=== PATIENT | female | born 1950 | race African-American/Black ===

== ENCOUNTER → 2020-12-13 | Outpatient (CLI) | payer OTHER ==
[~2020-12-13] VITALS: Ht 165.1 cm; Wt 77.1 kg
[~2020-12-13] MED LIST: BACLOFEN 10MG T10 MG PO; BAYER CHEWABLE81 MG PO; CENTRUM SILVER1 EAC6 PO; EVISTA60 MG PO; GLIPIZIDE 10 MG10 MG PO; GLUCOPHAGE1000 MG PO; HYDROCHLOROTHIA25 M1 PO; HYDROCODON-ACE1 EAC7 PO; LISINOPRIL10 MG PO; MOVANTIK25 MG PO; NEURONTIN 300M300 M2 PO; OMEPRAZOLE40 MG PO; TUMS DUAL ACTI1 EACH PO; VITAMIN D3 COM1 EACH PO
[2020-12-13 08:17] VITALS: BP 157/82
--- NOTE | 2020-12-13 08:34 | NUR ---
Pain Clinic Assessment: 1. History of Osteoarthritis: BACK History of Rheumatoid Arthritis: 2. Height: 5 ft. 5 in. 165.1 cm. Weight: 170.0 lb. oz. 77.112 kg. Patient's BMI: 28.3 3. Vital Signs: BP: 157/82 Pulse: 82 Resp: 16 Temp: 02 Sat: 100 ECG Mon: 4. Pain Intensity: 9-10 5. Fall Risk: Dizziness: N Needs help standing or walking: N Fallen in the last 3 months: N Fall risk comments: 6. Patient on Blood Thinner: None 7. History of Hypertension: Y 8. Opioid Therapy greater than 6 weeks: N Opiate Contract Signed: 9. Risk Assessment Tool Provided: 0-LOW RISK 10. Functional Assessment Tool: 66/70 11. Recreational Drug Use: Never Drug Type: Tobacco Use: Never Smoker Tobacco Type: Amount or Packs/day: How Many Years: Alcohol Use: No Frequency: Quant:
--- NOTE | 2020-12-14 09:22 | HPC ---
[facility] [address] [place] [address] PAIN MANAGEMENT CONSULTATION Name: JAVI LOGAN Room #: REG OSCAR Nikolai#: [id number] Admission: 12/13/20 Attend Phys: Oswald Kaur DO Discharge: Date of : 54 Report #: [id number] THIS REPORT FOR: cc: MAXINE DE LA VEGA MD, RADHIKA MD Johnson, James E. DO ~ DATE OF SERVICE: 12/13/2020 CHIEF COMPLAINT: Low back pain, right lower extremity pain with paresthesias and mid back pain. HISTORY OF PRESENT ILLNESS: As you know, the patient is a very pleasant 70-year-old female reporting longstanding history of mid back pain due to myofascial symptoms and low back pain and right lower extremity pain that presented on 06/04/2020. She denies any specific injury or trauma. The patient reports that she was in her normal state of health when the symptoms began to occur. She denies injury or trauma that led to symptom development. She has sought conservative treatment options to address ongoing symptoms including medication management, for which she is receiving gabapentin through her primary care physician and has had some hydrocodone to treat current symptoms. She has been sent to see Dr. Aguiar in regards to a possible EMG, which apparently was performed yesterday. The patient does not have the results of that EMG to date. She has been referred to our service to discuss interventional treatment options to address low back pain and right lower extremity pain. She states she has been involved in physical therapy. She has undergone 8 sessions of physical therapy, but did not feel this is provided much in the way of improvement. She has not returned to physical therapy. She has been advised that her mid back symptoms appear to be myofascial in origin and has been taking hydrocodone for this issue. She has been referred to our service to discuss interventional treatment options. The patient reports today her pain is continuous. She describes the pain as burning, shooting, sharp, tender, and pulling with intermittent numbness and tingling. She places current pain score 10+/10. Daily average of 9/10. The worst the pain has been is 10+/10. The patient states that sitting, walking, and lying down tends to exacerbate symptoms. Nothing tends to improve her symptoms. She has been referred to our service to discuss interventional treatment options to address suspected lumbar radiculopathy. PAST MEDICAL HISTORY: 1. Gastroesophageal reflux disease. 2. Diabetes mellitus type 2. 3. Hypertension. 4. Chronic low back pain. 5. Osteoarthritis. 6. Opioid-induced constipation. [address] [address] PAIN MANAGEMENT CONSULTATION Name: JAVI LOGAN Room #: REG [place]#: [id number] Admission: 12/13/20 Attend Phys: Oswald Kaur DO Discharge: Date of : 54 Report #: [id number] PAST SURGICAL HISTORY: 1. Back surgery to address lumbar radiculopathy 1988, 02/1990, and 12/2010. 2. Bilateral total knee arthroplasties. SOCIAL HISTORY: The patient denies tobacco use. Denies IV or illicit drug use. Denies any chronic alcohol use. 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 She is working from home due to COVID restrictions. She is not receiving workmen's compensation, nor is she trying to obtain disability benefits. She is not in litigation in regards to pain. She is unaccompanied at today's visit. REVIEW OF SYSTEMS: Positive for weight change, decrease in appetite, wearing corrective eyewear, depression, non-insulin dependent diabetes, midback pain, low back pain, gastroesophageal reflux disease, and osteoarthritis. All other review of systems negative per 12-point review of systems other than those listed in history of present illness. Pain impact score 66 to 70 indicating severe near complete interference of daily activities secondary to pain. ALLERGIES: KETOROLAC AND DULOXETINE. CURRENT MEDICATIONS: Multivitamin 1 tab per day, famotidine 1 tab per day, Evista 60 mg once a day, lisinopril 10 mg per day, omeprazole 40 mg per day, aspirin 81 mg per day, hydrochlorothiazide 25 mg once a day, multivitamin 1 tab per day, Movantik 25 mg once a day, glipizide 10 mg once a day, metformin 1000 mg twice a day, gabapentin 300 mg 3 times a day, hydrocodone 5/325 one tab every 4-6 hours p.r.n. for pain. IMAGING: MRI of the lumbar spine obtained 09/21/2020 shows L2-L3 with marked degenerative changes, diffuse disk bulge, facet arthropathy, and ligamentum flavum hypertrophy resulting in mild trefoil central canal stenosis with moderate bilateral neural foraminal narrowing. Thecal sac measures 8 mm. L3-L4 shows degenerative changes to the disk, asymmetric lateral disk bulge, facet arthropathy, ligamentum flavum hypertrophy resulting in moderate bilateral neural foraminal narrowing with thecal sac measuring 1.1 cm. At L4-L5, marked degenerative changes, diffuse disk bulge, facet arthropathy, marked left and moderate right neural foraminal narrowing. At L5-S1, moderate degenerative changes, diffuse disk bulge, superimposed left paracentral subarticular disk protrusion resulting in moderate central canal stenosis with effacement of bilateral lateral recesses, marked bilateral neural foraminal narrowing. Thecal sac measures 7 mm. EMG of the lower extremities performed by Dr. Aguiar on 12/12/2020 shows [facility] [address] [place] [address] PAIN MANAGEMENT CONSULTATION Name: JAVI LOGAN Room #: REG [facility]#: [id number] Admission: 12/13/20 Attend Phys: Oswald Kaur DO Discharge: Date of : 54 Report #: [id number] initial results as negative for any pathology. PQRS: The patient has known arthritic changes of the bilateral shoulders, lumbar spine, and bilateral hips. No rheumatoid arthritis. She is placing pain intensity anywhere from 9-10/10, not a fall risk, has not had a fall in last 3 months. She is not on blood thinners, but is treated for hypertension. She has had some opioid medication, but is not on opioid long-term. She has a low risk of opioid addiction based on our assessment tool. Pain impact is 66/70, severe near complete interference of daily activities secondary to pain. PHYSICAL EXAMINATION: VITAL SIGNS: Blood pressure 157/82, pulse 82, respiratory rate 16 and unlabored. The patient is 100% on room air. Height 5 feet 5 inches tall, weight 170 pounds, BMI calculated 28.3. GENERAL: Well-developed, well-nourished, well-hydrated 70-year-old male appearing her stated age, placing current pain score of 9-10/10. HEENT: Normocephalic, atraumatic. Pupils equal, round and reactive. The patient is wearing a mask in compliance with COVID-19 regulations. LUNGS: Appear clear. No wheeze, rhonchi, or rales. CARDIOVASCULAR: Regular. No appreciable gallop, no rub. ABDOMEN: Soft, obese, normoactive bowel sounds. EXTREMITIES: Show no clubbing, no cyanosis. No appreciable edema. MUSCULOSKELETAL: Lower extremity strength appears symmetrical 5/5. Slight giveaway strength noted on the right when compared to left due to pain generation. Seated straight leg raising negative. Supine straight leg raising mildly positive right at approximately 60-degree angle. Ankle clonus negative. Babinski is negative. The patient has palpatory tenderness noted throughout the thoracolumbar area. No spinous process tenderness. Deep inhalation and exhalation causes no change in thoracic pain. There is no radiation of symptoms in a dermatomal distribution. ASSESSMENT: 1. Lumbar radiculopathy. 2. Displacement of lumbar intervertebral disk with radiculopathy. 3. 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 4. Central canal stenosis of lumbar spine. 5. Myofascial pain in thoracic spine. PLAN: 1. Based on today's physical exam and history the patient has provided, the description the patient uses in regards to pain as well as location of symptoms, it would appear she is suffering from 2 different pain generators. The first and most consistent is the lumbar radicular symptoms secondary to the findings on the MRI. I am pleased to indicate that the patient has undergone an EMG, which has initial diagnosis of no significant nerve-related long-term issues. This would indicate that a treatment in the area that could provide improvement [address] [address] PAIN MANAGEMENT CONSULTATION Name: JAVI LOGAN Xavier Room #: REG [place]#: [id number] Admission: 12/13/20 Attend Phys: Oswald Kaur DO Discharge: Date of : 54 Report #: [id number] in symptoms. We discussed with the patient the treatment options based on the findings in her physical exam and MRI imaging obtained and presented to us today. The following was discussed with the patient as treatment option. We discussed physical therapy, stretching exercises, and core strengthening as treatment approach. We discussed medication management, adding neuropathic pain medication such as increasing her current gabapentin or rotating to another agent. We discussed epidural injections under fluoroscopic guidance, for which the patient was referred to our clinic and ultimately surgical options. After reviewing risks and benefits of all proposed treatment options, the patient chose to move forward with a lumbar epidural injection under fluoroscopic guidance. The patient was advised that due to third democr[employer] payer restrictions, authorization would have to be obtained before the patient could undergo an epidural injection. We will begin this process immediately. Once we have attained this authorization, we will have the patient return to undergo the first in the series of lumbar epidural injections. 2. In regards to the patient's mid back pain, it does appear she is suffering from myofascial symptoms as the palpatory distribution is diffuse and is nondermatomal in distribution. There is no spinous process tenderness. Thus, I do not feel that there is any underlying concerning findings in the thoracic spine. We recommend conservative treatment approach with physical therapy, stretching exercises, directed acupuncture, and myofascial release techniques to the area and possible addition of a muscle relaxant. The patient chose to begin with a muscle relaxant. The patient was provided prescription of baclofen 10 mg dose 1 tab p.o. t.i.d. I have advised the patient watch for any side effects with its use. If no side effects, she can continue to use as directed. I have given her #60 tablets. We will discuss efficacy at the followup visit. 3. We will plan to see the patient back in followup visit once authorization has been obtained to undergo the first in the series of lumbar epidural injections. We are hopeful we will have this approval quickly and be able to address her symptoms. 4. We wish to thank Dr. De La Vega for the referral of this patient to our clinic. We will keep you apprised of response to treatment, as we address lumbar radiculopathy and myofascial pain. Again, we wish to thank you for the opportunity to see this patient in consultation. <ELECTRONICALLY SIGNED> By: Oswald Kaur DO 12/14/20 0922 [id number] Oswald Kaur DO /nt
== END ==
LOC: PAIN 06:49
PROVIDERS: ATTEND Anesthesiology Pain Medicine
DX: M51.16 Intervertebral disc disorders with radiculopathy, lumbar region (principal); M48.061 Spinal stenosis, lumbar region without neurogenic claudication; M79.604 Pain in right leg; R20.2 Paresthesia of skin; M79.10 Myalgia, unspecified site; Z88.8 Allergy status to other drugs, medicaments and biological substances; Z79.899 Other long term (current) drug therapy

== ENCOUNTER → 2020-12-20 | Outpatient (CLI) | payer OTHER ==
[~2020-12-20] VITALS: Ht 165.1 cm; Wt 78.7 kg
[2020-12-20 09:18] VITALS: BP 170/98
--- NOTE | 2020-12-20 09:21 | NUR ---
Pain Clinic Assessment: 1. History of Osteoarthritis: BACK History of Rheumatoid Arthritis: 2. Height: 5 ft. 5 in. 165.1 cm. Weight: 173.4 lb. oz. 78.654 kg. Patient's BMI: 28.9 3. Vital Signs: BP: 170/98 Pulse: 82 Resp: 16 Temp: 02 Sat: 100 ECG Mon: 4. Pain Intensity: 7 5. Fall Risk: Dizziness: N Needs help standing or walking: N Fallen in the last 3 months: N Fall risk comments: 6. Patient on Blood Thinner: None 7. History of Hypertension: Y 8. Opioid Therapy greater than 6 weeks: N Opiate Contract Signed: 9. Risk Assessment Tool Provided: 0-LOW RISK 10. Functional Assessment Tool: 66/70 11. Recreational Drug Use: Never Drug Type: Tobacco Use: Never Smoker Tobacco Type: Amount or Packs/day: How Many Years: Alcohol Use: No Frequency: Quant:
--- NOTE | 2020-12-21 11:25 | HPC ---
[facility] [place] [address] PAIN MANAGEMENT CONSULTATION Name: JAVI LOGAN Room #: REG OSCAR Liz.#: [id number] Admission: 12/20/20 Attend Phys: Oswald Kaur DO Discharge: Date of : 54 Report #: [id number] THIS REPORT FOR: cc: MAXINE DE LA VEGA MD, RADHIKA MD Johnson, James E. DO ~ DATE OF SERVICE: 12/20/2020 CHIEF COMPLAINT: Low back pain, right lower extremity pain with paresthesias, intermittent mid back pain. HISTORY OF PRESENT ILLNESS: As you know, the patient is a very pleasant 70-year-old female reporting longstanding history of low back pain, right lower extremity pain with paresthesias and intermittent mid back pain. The patient indicates pain began somewhere in 06/04/2020. She denies any specific injury or trauma. She had tried various treatment options ultimately seeking further discussion with her PCP as [id number] medications, rest, relaxation did not improve symptoms. She underwent evaluation even undergoing EMG, which likely showed no significant results. She was referred to our clinic to trial epidural injection under fluoroscopic guidance. The patient was seen in consultation 12/13/2020, diagnosed with lumbar radiculopathy secondary to the displacement of lumbar intervertebral disk and lateral recess stenosis. She was established today's appointment to undergo the first in a series of lumbar epidural injections as authorization had to be obtained. She returns today in followup visit reporting a pain score of 7/10, requesting to undergo a lumbar epidural injection under fluoroscopic guidance. ALLERGIES: KETOROLAC, DULOXETINE. CURRENT MEDICATIONS: Multivitamin, famotidine, Evista, lisinopril, omeprazole, aspirin, hydrochlorothiazide, multivitamin, Movantik, glipizide, metformin, gabapentin, hydrocodone. SOCIAL HISTORY: The patient denies tobacco use. Denies IV or illicit drug use. Denies any chronic alcohol use. 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 IMAGING: No new imaging available. PHYSICAL EXAMINATION: VITAL SIGNS: Blood pressure 170/98, pulse is 82, respiratory rate 16 and unlabored. The patient is 100% on room air. Height 5 feet 5 inches tall, weight 173.4 pounds, BMI calculated 28.9. GENERAL: Well-developed, well-nourished, well-hydrated 70-year-old female, appearing stated age, pain is rated up to 7/10. HEENT: Normocephalic, atraumatic. Pupils are round and responsive. [address] [address] PAIN MANAGEMENT CONSULTATION Name: JAVI LOGAN Room #: REG [facility].#: [id number] Admission: 12/20/20 Attend Phys: Oswald Kaur DO Discharge: Date of : 54 Report #: [id number] EXTREMITIES: Show no clubbing, no cyanosis, no edema. MUSCULOSKELETAL: Lower extremity strength is symmetrical again today 5/5. Seated straight leg raising negative. Supine straight leg raising mildly positive on the right. Abbe's test negative. Gait appears normal today. ASSESSMENT: 1. Lumbar radiculopathy. 2. Displacement of lumbar intervertebral disk with radiculopathy. 3. Lateral recess stenosis of lumbar spine. 4. Central canal stenosis of lumbar spine. 5. Myofascial pain. PLAN: 1. The patient returns today in followup visit to undergo lumbar epidural injection under fluoroscopic guidance. We have received authorization for the patient to undergo the first in a series of lumbar epidural injections to address lumbar radicular symptoms secondary to the displacement of lumbar intervertebral disk. She has been advised risks and benefits of the procedure. These risks include but are not necessarily limited to bleeding, bruising, infection, worsening pain, no relief of pain, also risk of temporary or permanent muscle weakness, temporary or permanent nerve damage, possible paralysis, post-dural puncture headache and . The patient states understood and wished to proceed. 2. No medication changes made at today's visit. The patient will continue current medical therapy as prior prescribed. 3. We plan to see the patient back in followup visit in 30 days. At that time, review efficacy of today's epidural injection to determine next in the series of epidural injections would be recommended. PROCEDURE NOTE DESCRIPTION OF PROCEDURE: L5-S1 interlaminar epidural steroid injection under fluoroscopic guidance. This is the first procedure of the first series that the patient is undergoing. After obtaining written consent, the patient was taken back to the fluoroscopy suite, placed in a prone position with pillow under the abdomen to decrease lumbar lordosis. The skin overlying the lumbosacral area was then prepped and draped in aseptic fashion. The L5-S1 vertebral interspace was then identified by AP fluoroscopy. The skin and subcutaneous tissue overlying the target site of injection was anesthetized with 3 mL 1% lidocaine. A 20-gauge 3-1/2 inch Tuohy needle was then advanced under fluoroscopic guidance towards the epidural space using a right paramedian approach. The epidural space was identified using loss of resistance to air technique. After negative [facility] [address] [place] [address] PAIN MANAGEMENT CONSULTATION Name: JAVI LOGAN Room #: REG CL Nikolai#: [id number] Admission: 12/20/20 Attend Phys: Oswald Kaur DO Discharge: Date of : 54 Report #: [id number] aspiration for heme or cerebrospinal fluid, a total of 1 mL of Omnipaque was injected. A lumbar epidurogram was confirmed using both AP and lateral fluoroscopy. After negative aspiration for heme or cerebrospinal fluid, 5 mL of solution containing 2 mL, 40 mg per mL, 80 mg total triamcinolone along with 3 mL of lidocaine 1% was injected in increments. Contrast spread was noted in the post-epidural space. The needle was then retracted approximately half way and needle tract flushed with 1 mL of 1% lidocaine. Needle was then removed. There were no apparent sensory or motor deficits in the lower extremity following the procedure. A sterile bandage was placed over the injection site. The heart rate, pulse, oximetry and blood pressure were continuously monitored after the procedure. There were no apparent complications. The patient tolerated the procedure well and was carefully escorted to the recovery room in stable condition. There were no apparent complications. After meeting discharge criteria, the patient was then discharged home. <ELECTRONICALLY SIGNED> By: Oswald Kaur DO 12/21/20 1125 [id number] Oswald Kaur DO /nt
== END | disposition home or self-care (01) ==
LOC: PAIN 06:48
PROVIDERS: ATTEND Anesthesiology Pain Medicine
DX: M51.16 Intervertebral disc disorders with radiculopathy, lumbar region (principal); M48.061 Spinal stenosis, lumbar region without neurogenic claudication; M79.18 Myalgia, other site; G89.29 Other chronic pain; Z98.890 Other specified postprocedural states; Z79.899 Other long term (current) drug therapy; Z88.8 Allergy status to other drugs, medicaments and biological substances